=== PATIENT | male | born 1970 | race African-American/Black ===

== ENCOUNTER 2017-09-22 11:33 | Emergency (ER) | payer OTHER ==
[~2017-09-22] VITALS: Ht 185.4 cm; Wt 100.0 kg
[2017-09-22] MEDS ORDERED: IBUPROFEN 600MG TABLET PO STA (14:33)
[2017-09-22 15:36] LABS: CLARITY URINE CLEAR (CLEAR); COLOR URINE YELLOW (YELLOW); KETONES URINE 3+ (NEGATIVE); LEUKOCYTE ESTERASE URINE NEGATIVE (NEGATIVE); NITRITE URINE NEGATIVE (NEGATIVE); OCCULT BLOOD URINE NEGATIVE (NEGATIVE); PROTEIN URINE NEGATIVE (NEGATIVE); SPECIFIC GRAVITY URINE 1.043 (1.005-1.030); UROBILINOGEN URINE 0.2 E.U./dL (0.2-1.0)
[2017-09-22] MEDS ORDERED: CEFTRIAXONE SODIUM 250 MG/VIAL IM ONE (16:45)
[2017-09-22] MEDS ORDERED: LIDOCAINE HCL 1% 20ML VIAL (Pyxis) INJ INFIL ONE (16:45)
[2017-09-22 17:36] LABS: BASOPHILS % 0.6 % (0.0-2.0); EOSINOPHILS % 0.5 % (0.0-5.0); HEMATOCRIT. 46.1 % (42.0-52.0); HEMOGLOBIN. 15.6 g/dL (14.0-18.0); LYMPHOCYTES % 37.3 % (20.0-50.0); MEAN CORPUSCULAR HEMOGLOBIN 28.5 pg (28.0-32.0); MEAN CORPUSCULAR VOLUME 84.5 fL (80.0-94.0); MEAN PLATELET VOLUME 9.2 fl (7.4-10.4); MONOCYTES % 8.8 % (2.0-8.0); NEUTROPHILS % 52.8 % (40.0-76.0); PLATELET 223 x1000/uL (130-400); RED BLOOD CELL COUNT 5.45 mill/uL (4.7-6.1); RED CELL DISTRIBUTION WIDTH 13.4 % (11.6-14.6)
[2017-09-22 17:41] LABS: CHLORIDE 105 mEq/L (98-107)
[2017-09-22 18:30] VITALS: BP 120/72
== END 2017-09-22 18:40 | disposition home or self-care (01) ==
LOC: ER 13:42
DX: N43.3 Hydrocele, unspecified (principal); R73.9 Hyperglycemia, unspecified; Z90.49 Acquired absence of other specified parts of digestive tract
CPT/HCPCS: 36415; 76870; 80053; 81003; 82962; 85025; 93976; 96372; 99285; J0696; J3490

== ENCOUNTER 2018-10-01 16:38 | Emergency (ER) | payer OTHER ==
[~2018-10-01] VITALS: Ht 185.4 cm; Wt 100.0 kg
[2018-10-01] MEDS ORDERED: HYDROCODONE/ACETAMINOPHEN 5/325MG TABLET PO ONE (21:45)
[2018-10-01 23:45] VITALS: BP 136/97
== END 2018-10-02 00:02 | disposition home or self-care (01) ==
LOC: ER 16:38
DX: N43.2 Other hydrocele (principal); E11.9 Type 2 diabetes mellitus without complications; F12.90 Cannabis use, unspecified, uncomplicated
CPT/HCPCS: 76870; 93976; 99284

== ENCOUNTER 2021-05-21 05:28 | Emergency (ER) | payer OTHER ==
[~2021-05-21] VITALS: Ht 177.8 cm; Wt 80.0 kg
[~2021-05-21 05:28] MED LIST: LEVO500T89 MT; METF-416 PO; METR500T MT
[2021-05-21 05:30] VITALS: BP 0/0
== END 2021-05-21 10:50 ==
LOC: ER 05:40
DX: I46.9 Cardiac arrest, cause unspecified (principal)
CPT/HCPCS: 99285